=== PATIENT | female | born 1935 | race Hispanic/Latino ===

== ENCOUNTER 2018-03-15 12:22 | Emergency (ER) | payer MEDICARE ==
[2018-03-15 14:58] VITALS: BMI 31.1
--- NOTE | 2018-03-15 16:16 | C.PDOC ---
History Of Present Illness 83 y/o female, with history of bilateral knee replacement and mild diabetes, comes in stating she had a fall 2 weeks ago when she was walking on the street. Patient doesnt know what made her fall and doesnt think she lost consciou sness, but she did hit her head. She does not remember any other pain at the time. Patient was seen at [facility] [place] where she had sutures placed in the back of her head. States she was seen by her doctor several days ago and had sutures removed and complained of pain to her right lower leg; however the doctor didnt see anything. Patient comes in today because she states she feels like she has trouble finding her words and has mild forgetfulness. Patient does not seem confused at this time and has no trouble finding her words. Also complains that the leg pain feels worse but she is ambulating without difficulty.. Time Seen by Provider: 03/15/18 14:52 Chief Complaint (Nursing): Medical Clearance History Per: Patient History/Exam Limitations: no limitations Onset/Duration Of Symptoms: Days Current Symptoms Are (Timing): Still Present Past Medical History Reviewed: Historical Data, Nursing Documentation, Vital Signs - [facility]book Procedures CATARAC PHACOEMULS/ASPIR (11/29/12) INSERT LENS AT CATAR EXT (11/29/12) Family History: States: No Known Family Hx Review Of Systems Constitutional: Negative for: Fever Cardiovascular: Negative for: Chest Pain Respiratory: Negative for: Shortness of Breath Musculoskeletal: Positive for: Leg Pain (Right). Negative for: Neck Pain, Other (LOC) Neurological: Positive for: Change in Speech. Negative for: Confusion Physical Exam - Physical Exam Appears: Non-toxic, No Acute Distress Skin: Warm, Dry Head: Atraumatic, Normacephalic Eye(s): bilateral: Normal Inspection, PERRL, EOMI Oral Mucosa: Moist Neck: Supple Chest: Symmetrical Cardiovascular: Rhythm Regular, No Murmur Respiratory: Normal Breath Sounds, No Rales, No Rhonchi, No Wheezing Gastrointestinal/Abdominal: Soft, No Tenderness Extremity: No Tenderness, No Swelling (of right lower leg; no ecchymosis) Extremity: Bilateral: Atraumatic, Normal Color And Temperature, Normal ROM Neurological/Psych: Oriented x3 ED Course And Treatment - Laboratory Results Result Diagrams: 03/15/18 17:08 03/15/18 17:08 Lab Interpretation: No Acute Changes - Other Rad Right knee and tib/fib X-Ray: Interpreted by Me Interpretation: No evidence of fracture or dislocation. Normal soft tissues. S/P TKR - CT Scan/US Head Other Rad Studies (CT/US): Read By Radiologist, Radiology Report Reviewed CT/US Interpretation: Accession No. : [id number]. Patient Name / ID : RAFA KRUEGER / [id number]. Exam Date : 03/15/2018 16:34:12 ( Approved ). Study Comment : Sex / Age : F / 83Y. Creator : Karthik Rousseau. Dictator : Henny Shukla MD. Pasting Machine Operator : Tavern Keeper : Henny Shukla MD. Approver2 : Report Date : 03/15/2018 16:44:13. My Comment : . Date of service: 03/15/2018. PROCEDURE: CT HEAD WITHOUT CONTRAST. HISTORY: R/O Bleed. COMPARISON: None available. TECHNIQUE: Axial computed tomography images were obtained through the head/brain without intravenous contrast. Radiation dose: Total exam DLP = 1035.35 mGy-cm. This CT exam was performed using one or more of the following dose reduction techniques: Automated exposure control, adjustment of the mA and/or kV according to patient size, and/or use of iterative reconstruction technique. FINDINGS: HEMORRHAGE: No intracranial hemorrhage. BRAIN: Diffuse atrophy with prominence of the ventricles and sulci noted. No mass effect or edema. Dense intracranial atherosclerosis. 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 Scattered periventricular and subcortical white matter hypodensities, which are nonspecific, but often seen with chronic microvascular ischemic disease. Please note that MRI with diffusion imaging is more sensitive in the detection of acute ischemic event. VENTRICLES: No hydrocephalus. CALVARIUM: Unremarkable. PARANASAL SINUSES: Mucosal thickening of the ethmoid air cells. The remainder of the limited visualized paranasal sinuses appear grossly clear. MASTOID AIR CELLS: Unremarkable as visualized. No inflammatory changes. OTHER FINDINGS: None. IMPRESSION: Generalized atrophy. Nonspecific white matter changes. 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 Reevaluation Time: 19:41 Reassessment Condition: Unchanged - Physician Consult Information Time Consulting Physician Contacted: 19:53 Physician Contacted: Rolando Renteria Against Medical Advice - AMA Patient Left Against Medical Advice: The patient declines admission to the hospital and wishes to leave the Emergency Department. This action is against my medical advice. This decision was made with informed refusal. The patient was told that admission to the hospital is necessary. Explanation of the reasons why were discussed. The risks of leaving were explained to the patient and include, but are not limited to, worsening of known or currently unknown conditions, permanent disability and from undiagnosed or untreated conditions. The patient has the capacity to make this informed decision and understands my explanation of the current medical problem and risks of leaving. The patient voluntarily accepts these risks and signed an AMA form documenting our conversation. The patient was given the opportunity to ask questions and reconsider. The patient was encouraged to return to the Emergency Department at any time for further care. Medical Decision Making Medical Decision Making: Plan: --Head CT --Bloodwork --Right knee XR --Right Tibia fibula XR --UA Disposition - Disposition Disposition: AGAINST MEDICAL ADVICE Disposition Time: 20:55 Condition: GOOD Forms: [facility] (Mauritanian) - Clinical Impression Clinical Impression: Right leg pain, Word finding difficulty - Scribe Statement The provider has reviewed the documentation as recorded by the Kp Mckeon Provider Attestation: All medical record entries made by the Kp were at my direction and personally dictated by me. I have reviewed the chart and agree that the record accurately reflects my personal performance of the history, physical exam, medical decision making, and the department course for this patient. I have also personally directed, reviewed, and agree with the discharge instructions and disposition.
[2018-03-15 17:13] LABS: BASO % 0.5 % (0.0-2.0); EOS # 0.1 K/uL (0.0-0.7); EOS % 1.5 % (0.0-4.0); HEMOGLOBIN 11.8 g/dL (11.0-16.0); LYMPH % 27.6 % (20.0-40.0); MEAN CELL VOLUME 82.8 fL (81.0-99.0); MEAN CORPUSCULAR HEMOGLOBIN 26.7 pg (27.0-31.0); MEAN CORPUSCULAR HGB CONC 32.3 g/dL (33.0-37.0); MEAN PLATELET VOLUME 8.1 fL (7.2-11.7); MONO # 0.8 K/uL (0.0-0.8); MONO % 11.4 % (0.0-10.0); NEUT # 4.2 K/uL (1.8-7.0); RBC 4.4 Mil/uL (3.80-5.20); RED CELL DISTRIBUTION WIDTH 14.6 % (11.5-14.5); WHITE BLOOD COUNT 7.2 K/uL (4.8-10.8)
--- NOTE | 2018-03-15 17:15 | CT ---
Date of service: 03/15/2018 PROCEDURE: CT HEAD WITHOUT CONTRAST. HISTORY: R/O Bleed COMPARISON: None available. TECHNIQUE: Axial computed tomography images were obtained through the head/brain without intravenous contrast. Radiation dose: Total exam DLP = 1035.35 mGy-cm. This CT exam was performed using one or more of the following dose reduction techniques: Automated exposure control, adjustment of the mA and/or kV according to patient size, and/or use of iterative reconstruction technique. FINDINGS: HEMORRHAGE: No intracranial hemorrhage. BRAIN: Diffuse atrophy with prominence of the ventricles and sulci noted. No mass effect or edema. Dense intracranial atherosclerosis. 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 Scattered periventricular and subcortical white matter hypodensities, which are nonspecific, but often seen with chronic microvascular ischemic disease. Please note that MRI with diffusion imaging is more sensitive in the detection of acute ischemic event. VENTRICLES: No hydrocephalus. CALVARIUM: Unremarkable. PARANASAL SINUSES: Mucosal thickening of the ethmoid air cells. The remainder of the limited visualized paranasal sinuses appear grossly clear. MASTOID AIR CELLS: Unremarkable as visualized. No inflammatory changes. OTHER FINDINGS: None. IMPRESSION: Generalized atrophy. Nonspecific white matter changes. 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
[2018-03-15 17:46] LABS: ALB/GLOB RATIO 1.3 (1.0-2.1); ALBUMIN 3.9 g/dL (3.5-5.0); ALT/SGPT 20 U/L (9-52); AST/SGOT 19 U/L (14-36); BLOOD UREA NITROGEN 14 mg/dL (7-17); CALCIUM 8.9 mg/dl (8.6-10.4); GFR NON-AFRICAN AMERICAN > 60
[2018-03-15 19:10] VITALS: BP 150/87; PULSE 78; RESP 18; TEMP 98.1; O2SAT 98
--- NOTE | 2018-03-16 08:23 | RAD ---
Date of service: 03/15/2018 PROCEDURE: Right Knee Radiographs. HISTORY: pain COMPARISON: None. FINDINGS: BONES: No acute fracture or destructive bony lesions identified. JOINTS: Prior total knee replacement hardware appears in good apparent position the distal femur and proximal tibia. Postoperative appearance of the patella is unremarkable. JOINT EFFUSION: None. OTHER FINDINGS: None. IMPRESSION: Post right TKR with no acute fracture, subluxation or dislocation appreciated. Orthopedic hardware appears intact as discussed above.
--- NOTE | 2018-03-16 08:24 | RAD ---
Date of service: 03/15/2018 PROCEDURE: Radiographs of the right tibia and fibula. HISTORY: pain COMPARISON: None available TECHNIQUE: Frontal and lateral views obtained. FINDINGS: BONES: No fracture or destructive lesion. JOINT SPACES: Post right total knee replacement. OTHER FINDINGS: Vascular calcifications are identified in the posterior leg soft tissues. IMPRESSION: No acute fracture or dislocation right leg. Right TKR unremarkable as imaged.
== END 2018-03-15 20:30 | disposition left against medical advice (07) ==
LOC: C.ER 12:22
DX: M79.661 Pain in right lower leg (principal); R47.89 Other speech disturbances